=== PATIENT | female | born 1985 | race Caucasian/White ===

== ENCOUNTER 2017-06-22 19:34 | Emergency (ER) | payer OTHER ==
[2017-06-22] MEDS ORDERED: HYDROCODONE/ACETAMINOPHEN 5-325 MG TABLET PO ONE (20:13)
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
[2017-06-22] MEDS ORDERED: HYDROMORPHONE HCL INJ/PF 2 MG/ML AMPULE IV ONE (22:49)
[2017-06-23 00:57] VITALS: BP 129/78
== END 2017-06-23 00:53 | disposition short-term general hospital (02) ==
LOC: ER 19:34
PROC: 0HQ0XZZ Repair Scalp Skin, External Approach (ICD-10-PCS; principal; 2017-06-22)
DX: S01.01XA Laceration without foreign body of scalp, initial encounter (principal); M25.562 Pain in left knee; M54.2 Cervicalgia; M25.511 Pain in right shoulder; M79.1 Myalgia; V89.2XXA Person injured in unspecified motor-vehicle accident, traffic, initial encounter
CPT/HCPCS: 99285; 96374; 73130; 73562; 73030; 72125; 12001; L1830; J1170